=== PATIENT | female | born 1975 | race Caucasian/White ===

== ENCOUNTER → 2016-10-23 | Outpatient (CLI) | payer BC | LOC: US 13:30 | DX: Z12.31 Encounter for screening mammogram for malignant neoplasm of breast (principal); N92.0 Excessive and frequent menstruation with regular cycle; N83.202 Unspecified ovarian cyst, left side; N83.201 Unspecified ovarian cyst, right side | CPT/HCPCS: 76856; G0202 ==

== ENCOUNTER → 2020-06-04 | Outpatient (CLI) | payer BC, SELFPAY ==
[~2020-06-04] MED LIST: COLACE 100MG C100 MG PO; HYDROCHLOROTH12.5 MG PO; MELOXICAM15 MG PO; MULTI-VITAMIN1 EACH PO; NORCO 7.5-3251 EACH PO; OMEPRAZOLE20 M1 PO; PLAQUENIL 200200 MG PO; TOPIRAMATE50 MG PO; ZOLMITRIPTAN5 MG PO
[2020-06-04 09:30] LABS: RED BLOOD COUNT 4.44 M/UL (4.00-5.10); WHITE BLOOD COUNT 4.7 K/UL (4.5-11.0)
[2020-06-04 09:52] LABS: BUN/CREATININE RATIO 22 (0-10)
[2020-06-05 08:13] LABS: VITAMIN D, 25-HYDROXY 27.1 ng/mL (30.0-100.0)
[2020-06-05 14:11] LABS: COMPLEMENT C3, SERUM 114 mg/dL (82-167); COMPLEMENT C4, SERUM 20 mg/dL (12-38)
[2020-06-06 16:12] LABS: DSDNA CRITHIDIA LUCILIAE IFA Negative (Negative)
== END ==
LOC: LAB 08:37
PROVIDERS: Family Medicine; Nurse Practitioner Family
DX: M32.9 Systemic lupus erythematosus, unspecified (principal); I10 Essential (primary) hypertension; E87.6 Hypokalemia; N92.0 Excessive and frequent menstruation with regular cycle; E53.8 Deficiency of other specified B group vitamins; E55.9 Vitamin D deficiency, unspecified; Z79.899 Other long term (current) drug therapy
CPT/HCPCS: 36415; 80048; 80061; 80076; 82607; 82652; 84443; 85025; 85652; 86038; 86140; 86160; 86255

== ENCOUNTER → 2020-10-18 | Outpatient (CLI) | payer BC, OTHER | LOC: MAMO 10:30 | DX: N64.4 Mastodynia (principal); N60.02 Solitary cyst of left breast | CPT/HCPCS: 76641-LT; 77065; G0279 ==

== ENCOUNTER → 2020-12-07 | Outpatient (CLI) | payer BC ==
[2020-12-07 13:33] LABS: BUN/CREATININE RATIO 18 (0-10)
[2020-12-07 15:40] LABS: HEMOGLOBIN 12.9 gm/dl (12.3-15.3); RED BLOOD COUNT 4.2 M/UL (4.00-5.10); WHITE BLOOD COUNT 5.5 K/UL (4.5-11.0)
[2020-12-08 09:14] LABS: COMPLEMENT C3, SERUM 111 mg/dL (82-167); COMPLEMENT C4, SERUM 22 mg/dL (12-38)
== END ==
LOC: LAB 11:51
PROVIDERS: Nurse Practitioner Family
DX: G43.909 Migraine, unspecified, not intractable, without status migrainosus (principal); M13.0 Polyarthritis, unspecified; M32.0 Drug-induced systemic lupus erythematosus; M32.9 Systemic lupus erythematosus, unspecified; Z79.899 Other long term (current) drug therapy
CPT/HCPCS: 36415; 80053; 81001; 85025; 85652; 86038; 86140; 86160

== ENCOUNTER → 2021-05-23 | Outpatient (CLI) | payer BC | LOC: LAB 12:56 | DX: G43.909 Migraine, unspecified, not intractable, without status migrainosus (principal); M13.0 Polyarthritis, unspecified; M32.0 Drug-induced systemic lupus erythematosus; M32.9 Systemic lupus erythematosus, unspecified; Z68.1 Body mass index [BMI] 19.9 or less, adult | CPT/HCPCS: 87086 ==